=== PATIENT | male | born 1950 | race Caucasian/White ===

== ENCOUNTER 2020-07-22 06:43 | Day surgery (SDC) | payer MEDICARE, OTHER ==
[2020-07-22] MEDS ORDERED: Lactated Ringers 1,000 ML IV ONE (06:44)
[2020-07-22] MEDS ORDERED: Lidocaine 2% 5 ML SDV IV ONE (06:44)
[2020-07-22] MEDS ORDERED: Propofol 200 MG/20 ML SDV IV ONE (06:44)
[2020-07-22] MEDS ORDERED: Ketorolac 30 MG/ML SDV IVPUSH ONE (06:44)
[2020-07-22] MEDS ORDERED: ePHEDrine 50 MG/ML SDV IV ONE (06:44)
[2020-07-22] MEDS ORDERED: fentaNYL 100 MCG/2 ML SDV IV ONE (06:44)
[2020-07-22] MEDS ORDERED: HYDROmorphone 2 MG/ML SDV IV ONE (06:44)
[2020-07-22] MEDS ORDERED: Glycopyrrolate 0.2 MG/ML 5 ML MDV IV ONE (06:44)
[2020-07-22] MEDS ORDERED: Midazolam 1 MG/ML 2 ML SDV IV ONE (06:44)
[2020-07-22] MEDS ORDERED: Labetalol 20 MG/4 ML Syringe IV ONE (06:44)
[2020-07-22] MEDS ORDERED: Ondansetron 4 MG/2 ML SDV IVPUSH ONE (06:44)
[2020-07-22] MEDS ORDERED: Dexamethasone 4 MG/ML 5 ML MDV IVPUSH ONE (06:44)
[2020-07-22] MEDS ORDERED: Sodium Chloride 0.9% 10 ML Syringe FLUSH PRN (06:45)
[2020-07-22] MEDS: Lactated Ringers 1,000 ML IV SCH (07:25)
[2020-07-22] MEDS: ceFAZolin 2 GM in Premix Bag 1 BAG IV ONE (07:42)
[2020-07-22] MEDS: Lidocaine 1% with EPINEPHrine 1:100,000 20 ML MDV INJECT ONE (08:09)
[2020-07-22] MEDS: Bupivacaine 0.5% 30 ML SDV INJECT ONE (08:09)
--- NOTE | 2020-07-22 09:18 | PCM.OPNOTE ---
- General Post-Op/Procedure Note Date of Surgery/Procedure: 07/22/20 Operative Procedure(s): indirect hernia repair with mesh Findings: very large cord lipoma small indirect hernia Pre Op Diagnosis: inguinal hernia without obstrcution or gangrene Post-Op Diagnosis: Same Anesthesia Technique: General LMA, Local (8 ml 1 % lido with epi/0.5% buvipicaine) Primary Surgeon: Aniket Kimball Anesthesia Provider: Rudy Ramsey Pathology: cord lipoma Fluid Replacement, Intraop: 1,600 EBL in mLs: 20 Complications: None Condition: Good Free Text/Narrative:: see dictation # [id number]
[2020-07-22] MEDS: Acetaminophen/HYDROcodone 325-5 MG Tab PO PRN (10:12)
[2020-07-22 10:49] VITALS: BP 129/76; PULSE 73
--- NOTE | 2020-07-22 13:24 | OR ---
DATE OF OPERATION: 07/22/2020 SURGEON: Aniket Kimball MD PROCEDURE PERFORMED: Open hernia repair with mesh. PREOPERATIVE DIAGNOSIS: Inguinal hernia without obstruction or gangrene. POSTOPERATIVE DIAGNOSIS: Inguinal hernia without obstruction or gangrene. INDICATIONS FOR PROCEDURE: This is a 70-year-old white male who is referred with some scrotal discomfort as well as inguinal discomfort. Subsequent ultrasound was performed and demonstrated what appeared to be a large fat-filled hernia with fat into the scrotum. The patient was offered and accepted repair. FINDINGS: Intraoperative findings are as follows: There was a small hernia sac present. The fat was a very large cord lipoma with a narrow neck. This was repaired using a Phasix Plug and Patch, size large, reorder #[id number], expiration date 03/06/2022, with a lot number of [id number]. OptiFix was also used to fix the mesh to the floor of the inguinal canal, and this was a lot number [id number], reference #[id number] with an expiration date of 08/06/2021. 8 mL of 1:1 mixture of 1% lidocaine with epinephrine, 0.5% bupivacaine was used to infiltrate the area. DESCRIPTION OF OPERATION: After an excellent LMA anesthetic was administered, the patient was prepped and draped in usual sterile manner. The planned incision site was infiltrated with our local mixture. An incision was then made approximately 6 inches in length over the inguinal area with an intercept point approximately nursing home between the anterior-superior iliac spine and the symphysis pubis along the inguinal ligament. The underlying subcu fat was divided. This was rather thick up to about 5 inches in depth. Superficial inferior epigastric vessels were clamped, divided, and tied with 2-0 Vicryl ties. Aponeurosis of the external oblique was exposed. More local was infiltrated. A lakeisha was made in the aponeurosis, and this was carried out through the external ring. We immediately encountered a fat-filled spermatic cord. We were able to mobilize the cord as well as the fat, and after delivering the testicle in the operative field, we were able to dissect what turned out to be a large cord lipoma from the surrounding cord structures. There were also several smaller cord lipomas encountered. The largest one roughly had about a 6 inch diameter and came down to a narrow base of approximately 2 inches in width. After thinning out the base to ensure that there were no tavarez structures, the lipoma was transected using the LigaSure and 2 smaller other lipomas were also ligated using the LigaSure, and specimen was passed off the field. On further skeletonizing the cord, a small inguinal indirect hernia was also identified. The large Phasix patch was then placed into the defect and tacked into position with interrupted 2-0 Vicryl. The overlay mesh was then cut with a vertical keyhole for the planned internal ring, placed on the floor of the canal, and starting at the area of the symphysis pubis, it was tacked from the symphysis pubis along the inguinal ligament until we were lateral to the internal ring. The keyhole itself was closed with the 3- 0 Vicryl, and then the OptiFix was used to tack the mesh to the floor of the inguinal canal. The area was irrigated after ensuring excellent hemostasis. The aponeurosis of the external oblique was closed with a running 3-0 Vicryl. The Efra fascia was reapproximated with 3-0 Vicryl and then the skin was closed with brittanie. Needle, sponge, and instrument counts were reported as correct. The patient tolerated the procedure well, was taken to recovery room in good condition. /[id number] KEVIN/RODRIGUE
--- NOTE | 2020-07-30 11:03 | OR ---
DATE OF OPERATION: 07/22/2020 SURGEON: Aniket Kimball MD ADDENDUM: Please note that the preoperative and postoperative diagnoses is right-sided inguinal hernia without obstruction or gangrene. /[id number] KEVIN/RODRIGUE
== END 2020-07-22 10:27 | disposition home or self-care (01) ==
LOC: FB.SDS 06:43
PROVIDERS: ATTEND Surgery
DX: K40.90 Unilateral inguinal hernia, without obstruction or gangrene, not specified as recurrent (principal); D17.6 Benign lipomatous neoplasm of spermatic cord; Z79.899 Other long term (current) drug therapy; Z98.890 Other specified postprocedural states
CPT/HCPCS: 00830; 49505; 88304; 94150; A9270; C1713; C1781; J0690; J1100; J1170; J1885; J2001; J2250; J2405; J2704; J3010; J3490; J7120

== ENCOUNTER 2021-11-28 10:57 | Inpatient (IN) | payer MEDICARE, OTHER ==
[2021-11-28] MEDS ORDERED: Ondansetron 4 MG/2 ML SDV IVPUSH ONE (11:20)
[2021-11-28] MEDS ORDERED: Morphine 4 MG/ML VIAL IVPUSH ONE (11:20)
[2021-11-28] MEDS ORDERED: metroNIDAZOLE/Normal Saline 500 MG in Premix Bag 1 BAG IV ONE (11:21)
[2021-11-28] MEDS ORDERED: cefTRIAXone 2 GM Vial IVPUSH ONE (11:21)
[2021-11-28] MEDS ORDERED: Ketorolac 30 MG/ML SDV IVPUSH ONE (11:23)
[2021-11-28] MEDS ORDERED: Ibuprofen 200 MG Tab PO ONE (11:25)
[2021-11-28] MEDS ORDERED: Acetaminophen 500 MG Tab PO ONE (11:25)
[2021-11-28] MEDS ORDERED: Acetaminophen 325 MG Tab PO PRN (12:55)
[2021-11-28] MEDS ORDERED: Promethazine 25 MG Tab PO PRN (12:55)
[2021-11-28] MEDS ORDERED: Ketorolac 30 MG/ML SDV IVPUSH PRN (12:55)
[2021-11-28] MEDS ORDERED: Ondansetron 4 MG/2 ML SDV IV PRN (12:55)
[2021-11-28] MEDS: Ibuprofen 400 MG Tab PO PRN ×2 (17:03→21:00)
[2021-11-28] MEDS: metroNIDAZOLE/Normal Saline 500 MG in Premix Bag 1 BAG IV SCH (19:43)
[2021-11-28] MEDS: Sodium Chloride 0.9% 10 ML Syringe FLUSH PRN ×2 (20:58→23:29)
[2021-11-28] MEDS ORDERED: cefTRIAXone 2 GM Vial IVPUSH SCH (23:30)
[2021-11-29] MEDS: Sodium Chloride 0.9% 10 ML Syringe FLUSH PRN ×5 (03:36→21:44)
[2021-11-29] MEDS: metroNIDAZOLE/Normal Saline 500 MG in Premix Bag 1 BAG IV SCH ×2 (03:36→11:30)
[2021-11-29] MEDS: Ibuprofen 400 MG Tab PO PRN (03:50)
[2021-11-29] MEDS: cefTRIAXone 2 GM Vial IVPUSH SCH ×2 (09:57→21:38)
[2021-11-29] MEDS: Latanoprost 0.005% Ophth Soln 2.5 ML Bottle EYEBOTH SCH ×2 (13:30→21:39)
[2021-11-29] MEDS ORDERED: diphenhydrAMINE 50 MG/ML SDV IVPUSH PRN (17:13)
[2021-11-29] MEDS: Lisinopril 10 MG Tab PO SCH (17:58)
[2021-11-29] MEDS: metroNIDAZOLE 500 MG Tab PO SCH (18:00)
[2021-11-29] MEDS ORDERED: metroNIDAZOLE 500 MG Tab PO SCH (21:00)
[2021-11-30] MEDS: metroNIDAZOLE 500 MG Tab PO SCH ×2 (03:01→12:04)
[2021-11-30] MEDS: Sodium Chloride 0.9% 10 ML Syringe FLUSH PRN ×2 (08:46→09:00)
[2021-11-30] MEDS: cefTRIAXone 2 GM Vial IVPUSH SCH (08:46)
[2021-11-30] MEDS: Lisinopril 10 MG Tab PO SCH (09:01)
[2021-11-30 12:07] VITALS: BP 148/80; PULSE 57
== END 2021-11-30 14:00 | disposition home or self-care (01) | DRG 155 ==
LOC: FB.ED 10:57 → FB.MS 12:17 → OBSVTOIN 11-29 11:15
PROVIDERS: ADMIT Student in an Organized Health Care Education/Training Program; ATTEND Family Medicine
DX: K11.21 Acute sialoadenitis (principal); K12.2 Cellulitis and abscess of mouth; I10 Essential (primary) hypertension; H40.9 Unspecified glaucoma; E78.00 Pure hypercholesterolemia, unspecified; E66.9 Obesity, unspecified; Z68.36 Body mass index [BMI] 36.0-36.9, adult; Z79.899 Other long term (current) drug therapy
CPT/HCPCS: 36415; 80053; 85025; 86140; 87040; 96365; 96366; 96375; 96376; 99284; 99284-25; A9270-GY; G0378; J0696; J1200; J3490

== ENCOUNTER 2022-03-25 04:42 | Emergency (ER) | payer MEDICARE, OTHER ==
[2022-03-25] MEDS ORDERED: Alum Hydroxide/Mag Hydroxide 15 ML, Lidocaine 2% 15 ML PO ONE ×2 (05:02)
[2022-03-25 05:40] LABS: ESTIMATED GFR 92 mL/min (>60)
[2022-03-25 06:24] VITALS: BP 130/93; PULSE 78
== END 2022-03-25 06:47 | disposition home or self-care (01) ==
LOC: FB.ED 04:42
DX: K21.00 Gastro-esophageal reflux disease with esophagitis, without bleeding (principal); I48.91 Unspecified atrial fibrillation; I10 Essential (primary) hypertension; E78.00 Pure hypercholesterolemia, unspecified; E66.9 Obesity, unspecified; Z68.30 Body mass index [BMI] 30.0-30.9, adult; Z79.899 Other long term (current) drug therapy
CPT/HCPCS: 36415; 71046; 80053; 84484; 85025; 93005; 99285; A9270